=== PATIENT | female | born 1980 | race Caucasian/White ===

== ENCOUNTER 2017-06-12 15:43 | Observation (INO) | payer OTHER ==
--- NOTE | 2017-06-12 16:30 | C.PDOC ---
History Of Present Illness 36yo female, no known cardiac history, currently in her last month of is sent to the ER by Dr. López for evaluation of palpitations, which she has been having for the past 2 months. Patient reports her palpitations are intermittent and worse when she is lying supine on her left side. She denies any episodes of flu or cold symptoms during her , any chest pain, shortness of breath, fever, or cough. Patient was referred to Dr. López and was evaluated in his office where she had an abnormal EKG which showed non-specific ST depression. Dr. López did a preliminary echocardiogram which showed normal left ventricle, but her right atrium and ventricle were both dilated. Patient was then sent to [facility] [place] ER for further evaluation. Time Seen by Provider: 06/12/17 16:01 Chief Complaint (Nursing): Palpitations History Per: Patient History/Exam Limitations: no limitations Onset/Duration Of Symptoms: Intermittent Episodes, Persistent Current Symptoms Are (Timing): Still Present Associated Symptoms: denies: Chest Pain, Dyspnea, Dizziness, Blurred Vision, Focal Weakness, Headache Past Medical History Reviewed: Historical Data, Nursing Documentation, Vital Signs Vital Signs: Last Vital Signs Temp 98 F 06/12/17 15:53 Pulse 71 06/12/17 18:11 Resp 16 06/12/17 18:11 BP 108/81 06/12/17 18:11 Pulse Ox 100 06/12/17 21:10 - Medical History PMH: No Chronic Diseases Surgical History: No Surg Hx Family History: States: No Known Family Hx - Social History Hx Alcohol Use: No Hx Substance Use: No - Immunization History Hx Tetanus Toxoid Vaccination: No Hx Influenza Vaccination: No Hx Pneumococcal Vaccination: No Review Of Systems Except As Marked, All Systems Reviewed And Found Negative. Constitutional: Negative for: Fever, Chills Cardiovascular: Positive for: Palpitations. Negative for: Chest Pain Respiratory: Negative for: Cough, Shortness of Breath Physical Exam - Physical Exam Appears: Non-toxic, No Acute Distress Skin: Normal Color, Warm, Dry Head: Atraumatic, Normacephalic Eye(s): bilateral: PERRL, EOMI Neck: Normal ROM, Supple Chest: Symmetrical Cardiovascular: Rhythm Regular Respiratory: Normal Breath Sounds Gastrointestinal/Abdominal: Normal Exam, Soft, Other (gavid abdomen) Extremity: Normal ROM Neurological/Psych: Oriented x3, Normal Speech, Normal Cognition ED Course And Treatment - Laboratory Results Result Diagrams: 06/12/17 16:42 06/12/17 16:42 ECG: Interpreted By Me, Viewed By Me ECG Rhythm: Sinus Rhythm Interpretation Of ECG: T-wave inversion 3AVF and V1-V4. Rate From EC O2 Sat by Pulse Oximetry: 100 (RA) Pulse Ox Interpretation: Normal - Radiology CXR: Viewed By Me CXR Interpretation: Yes: No Acute Disease - Physician Consult Information Outcome Of Conversation: Case discussed with Dr López and Dr Huggins. Patient to remain on cardiac observation until echocardiogram can be done. Medical Decision Making Medical Decision Making: Plan: -- Per Dr. López, he is requesting DDimer levels, repeat echocardiogram and a possible pulmonary scan. Also requesting patient to be started on heparin drip. -- CMP -- CBC -- Troponin I Time: 1724 Labs reviewed, patient with elevated DDimer at 633. Case discussed with Dr. Huggins, agreeable with plan for CTA Chest; also requesting Heparin to be continued. CTA Chest [PE Protocol] ordered Heparin 5,000 units IVPB Heparin drip ordered Time: 1816 Patient informed on updated plan of care and is requesting her OBGYN Dr. Browne be made aware of plan. Case discussed with Dr. Browne who is requesting to hold heparin until CT Chest report is back. Time: 2056 CT Chest FINDINGS: Pulmonary arteries: No filling defects are seen in the pulmonary arteries or in its visualized tributaries. Aorta: The aorta and the great vessels are normal. Negative for dissection. Lungs: Indeterminate nodule of the left upper lung 8mm. Lungs overall clear. No focal lung consolidation, pulmonary infiltrates, no cavitary changes are seen. Pleural space: Unremarkable. No significant effusion. No pneumothorax. Heart: The cardiac chambers are mildly enlarged without pericardial thickening or effusion. No evidence of RV dysfunction. Bones/joints: No acute fracture. No dislocation. Soft tissues: Unremarkable. Lymph nodes: Unremarkable. No enlarged lymph nodes. IMPRESSION: No PE or dissection. No acute process is present in the chest. Indeterminate nodule within the left upper lung. Nodules >8 mm current recommendations include: In a low-risk patient follow-up CT at around 3, 9, and 24 months, dynamic contrast-enhanced CT, PET, and/or biopsy. In a high-risk patient same as for low-risk patient. Dr. Huggins informed of CT findings, who will also consult Dr. López. Time: [address] López requesting patient to be admitted overnight for observation. Patient informed of plan for admission and is agreeable. Disposition - Disposition Disposition: HOSPITALIZED Disposition Time: 21:13 Condition: STABLE - POA Present On Arrival: None - Clinical Impression Clinical Impression: Palpitations - Scribe Statement The provider has reviewed the documentation as recorded by the Scribe (Yoly Gentile) Provider Attestation: All medical record entries made by the Josyibe were at my direction and personally dictated by me. I have reviewed the chart and agree that the record accurately reflects my personal performance of the history, physical exam, medical decision making, and the department course for this patient. I have also personally directed, reviewed, and agree with the discharge instructions and disposition.
[2017-06-12 16:46] LABS: BASO % 0.4 % (0.0-2.0); EOS % 0.5 % (0.0-4.0); HEMOGLOBIN 11.4 g/dL (11.0-16.0); LYMPH # 2.3 K/uL (1.0-4.3); MEAN CELL VOLUME 75.1 fL (81.0-99.0); MEAN CORPUSCULAR HEMOGLOBIN 24.6 pg (27.0-31.0); MEAN CORPUSCULAR HGB CONC 32.7 g/dL (33.0-37.0); MONO # 0.9 K/uL (0.0-0.8); MONO % 9.4 % (0.0-10.0); NEUT # 5.9 K/uL (1.8-7.0); NEUT % 64.7 % (50.0-75.0); NRBC % 0.3 % (0.0-2.0); RBC 4.63 Mil/uL (3.80-5.20); RED CELL DISTRIBUTION WIDTH 16.4 % (11.5-14.5); WHITE BLOOD COUNT 9.1 K/uL (4.8-10.8)
[2017-06-12 17:04] LABS: ALB/GLOB RATIO 0.9 (1.0-2.1); ALBUMIN 3.6 g/dL (3.5-5.0); ALT/SGPT 15 U/L (9-52); AST/SGOT 16 U/L (14-36); BLOOD UREA NITROGEN 7 mg/dL (7-17); CALCIUM 8.8 mg/dl (8.6-10.4); GFR AFRICAN-AMERICAN > 60; GFR NON-AFRICAN AMERICAN > 60
[2017-06-12] MEDS ORDERED: Heparin25000 units/250ml 1/2NS 25,000 UNITS/250 ML BAG IV ONE (17:29)
[2017-06-12 18:04] LABS: PROTHROMBIN TIME 10.9 SECONDS (9.7-12.2)
--- NOTE | 2017-06-12 22:47 | CP.PCM.HP ---
History of Present Illness - History of Present Illness History of Present Illness: Chief complaint: Palpitations History of present illness: 36-year-old female with no past medical history currently 8 months came to the Dr. López's office, at that time patient was complaining of 2 weeks of recurrent palpitation, occasional chest pain, bilateral leg swelling. Patient was seen by funeral car driver. There was a concern about abnormal EKG, was sent to the emergency room. In the emergency room patient was evaluated, patient did not have any chest pain , she was resting comfortably, but comparing of recurrent palpitation, for at least 3 weeks, associated with a mild occasional chest discomfort, dyspnea. Patient was also having some leg swelling bilaterally, for 3 weeks. Blood pressure stable otherwise. 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 Controlled well with diet. Currently patient is comfortable not in any distress. No chest pain noted. Past medical history: None Allergies: Normal regular is None, Nonsmoker nonalcoholic Family history noncontributory No history of familial hypercoagulable state Review of system: Denies any headache, complaining of weakness, easy fatigability, tiredness, palpitation. Chest tightness occasionally. Bilateral leg swelling On examination: Patient is not in any distress, lying comfortably. Chest bilateral good air entry, regular heart sound noted. Abdomen Bilateral pedal edema noted Regular heart sound. Alert awake oriented Labs reviewed Nonspecific. Patient had a CT of the chest with the IV contrast for possible embolism, reported as negative. Patient had a EKG, showing evidence of T wave abnormalities, in the anterior leads and also in the inferior leads. Possible right ventricular strain and 10 Underlying right ventricular and possible heart failure cannot be ruled out Assessment/impression: 36-year-old female 8 months now. Bilateral pedal edema, EKG abnormality, because of the changes in the EKG, and outpatient echocardiogram showing evidence of abnormal right ventricle he was suggested to admit. Seen by cistern room operator. We'll admit the patient. Echocardiogram again in the morning. The patient has no evidence of pulmonary embolism there is no need of anticoagulation in the full dose range. Routine management as per the obstetrics DVT and GI prophylaxis. Cardiology evaluation. Will follow the patient after echocardiogram Present on Admission - Present on Admission Any Indicators Present on Admission: No History of DVT/PE: No History of Uncontrolled Diabetes: No Urinary Catheter: No Decubitus Ulcer Present: No Past Patient History - Past Social History Smoking Status: Never Smoked - ENDOCRINE/METABOLIC Other/Comment: Gestational DM - PSYCHIATRIC Hx Substance Use: No - SURGICAL HISTORY Hx Surgeries: No - ANESTHESIA Hx Anesthesia: No Meds Allergies/Adverse Reactions: Allergies Allergy/AdvReac Type Severity Reaction Status Date / Time No Known Allergies Allergy Verified 06/12/17 15:52 Results - Vital Signs Recent Vital Signs: Last Vital Signs Temp 98.1 F 06/12/17 22:27 Pulse 95 H 06/12/17 22:27 Resp 20 06/12/17 22:27 BP 108/51 L 06/12/17 22:27 Pulse Ox 100 06/12/17 22:27 - Labs Result Diagrams: 06/12/17 16:42 06/12/17 16:42 Labs: Laboratory Results - last 24 hr 06/12/17 06/12/17 06/12/17 16:42 16:42 16:42 WBC 9.1 RBC 4.63 Hgb 11.4 Hct 34.8 MCV 75.1 L MCH 24.6 L MCHC 32.7 L RDW 16.4 H Plt Count 236 MPV 9.0 Neut % (Auto) 64.7 Lymph % (Auto) 25.0 [place] % (Auto) 9.4 Eos % (Auto) 0.5 Baso % (Auto) 0.4 Neut # (Auto) 5.9 Lymph # (Auto) 2.3 [place] # (Auto) 0.9 H Eos # (Auto) 0.0 Baso # (Auto) 0.0 PT INR APTT D-Dimer, Quantitative 633 H Sodium 135 Potassium 3.9 Chloride 103 Carbon Dioxide 20 L Anion Gap 16 BUN 7 Creatinine 0.6 L Est GFR ( Amer) > 60 Est GFR (Non-Af Amer) > 60 Random Glucose 87 Calcium 8.8 Total Bilirubin 0.4 AST 16 ALT 15 Alkaline Phosphatase 223 H Troponin I < 0.0120 Total Protein 7.4 Albumin 3.6 Globulin 3.8 Albumin/Globulin Ratio 0.9 L 06/12/17 17:57 WBC RBC Hgb Hct MCV MCH MCHC RDW Plt Count MPV Neut % (Auto) Lymph % (Auto) [place] % (Auto) Eos % (Auto) Baso % (Auto) Neut # (Auto) Lymph # (Auto) [place] # (Auto) Eos # (Auto) Baso # (Auto) PT 10.9 INR 1.0 APTT 22 D-Dimer, Quantitative Sodium Potassium Chloride Carbon Dioxide Anion Gap BUN Creatinine Est GFR ( Amer) Est GFR (Non-Af Amer) Random Glucose Calcium Total Bilirubin AST ALT Alkaline Phosphatase Troponin I Total Protein Albumin Globulin Albumin/Globulin Ratio
--- NOTE | 2017-06-12 23:27 | US ---
EXAM: US Biophys Prof W Non-Stress EXAM DATE/TIME: 06/12/2017 9:21 PM CLINICAL HISTORY: 36 years old, female; Screening exam; Routine us screening of fetus; Third; TECHNIQUE: Real-time ultrasound of the biophys prof w non-stress with image documentation. COMPARISON: No relevant prior studies available. FINDINGS: There is a live intrauterine . Measurements of the biparietal diameter, head circumference, abdominal circumference, femur length correspond to gestational age of 37 weeks 5 days. A heart rate of 156 beats per minute was obtained. The fetus is cephalic in presentation. The stomach, kidney, and urinary bladder are identified. Limited images of the spine are submitted revealing no gross abnormality. Amniotic fluid volume of 17.3 cm was measured which is within normal limits (6.5 - 27). There are no CINE images submitted for evaluation of breathing and movement however per genetic technologist there is a BPP of 8 out of 8 (breathing, movement, tone, fluid volume). The placenta is anterior in location and appears normal. No placenta previa. The cervix measures 3 centimeters. IMPRESSION: Single live IUP.
[2017-06-13 07:37] LABS: HDL CHOLESTEROL 63 mg/dL (30-70)
[2017-06-13 07:49] LABS: B-TYPE NATRIURETIC PEPTIDE 64.8 pg/mL (0-450); CK-MB 0.33 ng/mL (0.0-3.38); LDL CHOLESTEROL 129 mg/dL (0-129)
[2017-06-13 07:59] VITALS: O2SAT 100
--- NOTE | 2017-06-13 09:09 | CT ---
CT chest pulmonary angiogram History: Hyperventilation. Palpitation. . Comparison: None available. Technique: Axial computed tomographic angiography images of the chest with intravenous contrast utilizing pulmonary embolism protocol. Sagittal and coronal reformatted images as well as sagittal and coronal MIPS reformatted images were obtained. This CT exam was performed using one or more of the following dose reduction techniques: Automated exposure control, adjustment of the mA and/or kV according to patient size, and/or use of iterative reconstruction technique. Findings: Somewhat limited exam given patient motion artifact. No gross central pulmonary embolism. More limited evaluation of the segmental and subsegmental branches particularly within the left lung. No evidence of gross aortic dissection. Indeterminate pulmonary nodule in the left upper lung measuring 8 millimeters on series 4, image 31. Additional 1-2 millimeter nodular density seen at the posterior left lung apex on series 4, image 13. Heart appears grossly preserved. No pleural effusion. Impression: 1. Somewhat limited exam given patient motion artifact. No gross central pulmonary embolism. More limited evaluation of the segmental and subsegmental branches particularly within the left lung. 2. Indeterminate pulmonary nodule measuring 8 millimeters in the left upper lung. Interval [address] chest follow-up may be helpful if clinically indicated. These findings were preliminarily reported at 8:57 p.m. on 06/12/[address] Rommel Johnson from [facility].
--- NOTE | 2017-06-13 12:44 | CP.PCM.DIS ---
Provider - Provider Date of Admission: 06/12/17 21:10 Attending physician: Bernardo Huggins MD Time Spent in preparation of Discharge (in minutes): 55 Hospital Course - Lab Results Lab Results: Most Recent Lab Values WBC 9.1 K/uL (4.8-10.8) 06/12/17 16:42 RBC 4.63 Mil/uL (3.80-5.20) 06/12/17 16:42 Hgb 11.4 g/dL (11.0-16.0) 06/12/17 16:42 Hct 34.8 % (34.0-47.0) 06/12/17 16:42 MCV 75.1 fL (81.0-99.0) L 06/12/17 16:42 MCH 24.6 pg (27.0-31.0) L 06/12/17 16:42 MCHC 32.7 g/dL (33.0-37.0) L 06/12/17 16:42 RDW 16.4 % (11.5-14.5) H 06/12/17 16:42 Plt Count 236 K/uL (130-400) 06/12/17 16:42 MPV 9.0 fL (7.2-11.7) 06/12/17 16:42 Neut % (Auto) 64.7 % (50.0-75.0) 06/12/17 16:42 Lymph % (Auto) 25.0 % (20.0-40.0) 06/12/17 16:42 [place] % (Auto) 9.4 % (0.0-10.0) 06/12/17 16:42 Eos % (Auto) 0.5 % (0.0-4.0) 06/12/17 16:42 Baso % (Auto) 0.4 % (0.0-2.0) 06/12/17 16:42 Neut # (Auto) 5.9 K/uL (1.8-7.0) 06/12/17 16:42 Lymph # (Auto) 2.3 K/uL (1.0-4.3) 06/12/17 16:42 [place] # (Auto) 0.9 K/uL (0.0-0.8) H 06/12/17 16:42 Eos # (Auto) 0.0 K/uL (0.0-0.7) 06/12/17 16:42 Baso # (Auto) 0.0 K/uL (0.0-0.2) 06/12/17 16:42 PT 10.9 SECONDS (9.7-12.2) 06/12/17 17:57 INR 1.0 06/12/17 17:57 APTT 22 SECONDS (21-34) 06/12/17 17:57 D-Dimer, Quantitative 633 ng/mlDDU (0-243) H 06/12/17 16:42 Sodium 135 mmol/L (132-148) 06/12/17 16:42 Potassium 3.9 mmol/L (3.6-5.2) 06/12/17 16:42 Chloride 103 mmol/L (98-107) 06/12/17 16:42 Carbon Dioxide 20 mmol/L (22-30) L 06/12/17 16:42 Anion Gap 16 (10-20) 06/12/17 16:42 BUN 7 mg/dL (7-17) 06/12/17 16:42 Creatinine 0.6 mg/dL (0.7-1.2) L 06/12/17 16:42 Est GFR ( Amer) > 60 06/12/17 16:42 Est GFR (Non-Af Amer) > 60 06/12/17 16:42 Random Glucose 87 mg/dL (65-105) 06/12/17 16:42 Calcium 8.8 mg/dl (8.6-10.4) 06/12/17 16:42 Total Bilirubin 0.4 mg/dL (0.2-1.3) 06/12/17 16:42 AST 16 U/L (14-36) 06/12/17 16:42 ALT 15 U/L (9-52) 06/12/17 16:42 Alkaline Phosphatase 223 U/L (38-126) H 06/12/17 16:42 Total Creatine Kinase 47 U/L (30-135) 06/13/17 07:10 CK-MB (Mass) 0.33 ng/mL (0.0-3.38) 06/13/17 07:10 Troponin I < 0.0120 ng/mL (0.00-0.120) 06/13/17 07:10 NT-Pro-B Natriuret Pep 64.8 pg/mL (0-450) 06/13/17 07:10 Total Protein 7.4 g/dL (6.3-8.3) 06/12/17 16:42 Albumin 3.6 g/dL (3.5-5.0) 06/12/17 16:42 Globulin 3.8 gm/dL (2.2-3.9) 06/12/17 16:42 Albumin/Globulin Ratio 0.9 (1.0-2.1) L 06/12/17 16:42 Triglycerides 254 mg/dL (0-149) H 06/13/17 07:10 Cholesterol 228 mg/dL (0-199) H 06/13/17 07:10 LDL Cholesterol Direct 129 mg/dL (0-129) 06/13/17 07:10 HDL Cholesterol 63 mg/dL (30-70) 06/13/17 07:10 TSH 3rd Generation 7.03 mIU/L (0.46-4.68) H 06/13/17 07:10 - Hospital Course Hospital Course: Upon Admission: Chief complaint: Palpitations History of present illness: 36-year-old female with no past medical history currently 8 months came to the Dr. López's office, at that time patient was complaining of 2 weeks of recurrent palpitation, occasional chest pain, bilateral leg swelling. Patient was seen by stable manager. There was a concern about abnormal EKG, was sent to the emergency room. In the emergency room patient was evaluated, patient did not have any chest pain , she was resting comfortably, but comparing of recurrent palpitation, for at least 3 weeks, associated with a mild occasional chest discomfort, dyspnea. Patient was also having some leg swelling bilaterally, for 3 weeks. Blood pressure stable otherwise. 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 Controlled well with diet. Currently patient is comfortable not in any distress. No chest pain noted. Past medical history: None Allergies: Normal regular is None, Nonsmoker nonalcoholic Family history noncontributory No history of familial hypercoagulable state Review of system: Denies any headache, complaining of weakness, easy fatigability, tiredness, palpitation. Chest tightness occasionally. Bilateral leg swelling Throughout Hospital Course: Patient was admitted due to chest pain and palpitations. Patient was evaluated to rule out PE/ DVT. CT chest negative for PE. Venous dopplers negative for DVT. ECHO was done and was read as normal as per Dr. López. Her thyroid studies reveal hypothyroidism which may be induced. She will need to have this repeat with her PMD or OB in a week. She is to continue with her routine OB visits. She is to follow up with Dr. López after she delivers for outpatient stress test. Discharge Exam - Head Exam Head Exam: ATRAUMATIC, NORMAL INSPECTION, NORMOCEPHALIC - Eye Exam Eye Exam: EOMI, Normal appearance, PERRL Pupil Exam: NORMAL ACCOMODATION - ENT Exam ENT Exam: Mucous Membranes Moist, Normal Exam - Respiratory Exam Respiratory Exam: Clear to PA & Lateral, NORMAL BREATHING PATTERN. absent: Decreased Breath Sounds - Cardiovascular Exam Cardiovascular Exam: REGULAR RHYTHM, RRR - GI/Abdominal Exam GI & Abdominal Exam: Normal Bowel Sounds, Soft. absent: Tenderness Additional comments: GRAVID abdomen - Rectal Exam Rectal Exam: Deferred - Extremities Exam Extremities exam: normal inspection, pedal edema, pedal pulses present - Neurological Exam Neurological exam: Alert, Oriented x3 - Psychiatric Exam Psychiatric exam: Normal Affect, Normal Mood - Skin Skin Exam: Dry, Intact, Normal Color, Warm Discharge Plan - Follow Up Plan Condition: STABLE Disposition: HOME/ ROUTINE Instructions: Palpitations Additional Instructions: You will need to have your thyroid studies repeated in 1-2 weeks. Please continue with your routine OB visits. Please make an appointment with Dr. López after you have delivered your baby for an outpatient stress test. Referrals: Harshal López MD [Staff Provider] -
[2017-06-13 15:36] VITALS: BP 98/64; PULSE 80; RESP 18; TEMP 97.8
--- NOTE | 2017-06-13 17:22 | VASCLAB ---
PROCEDURE: Lower Extremity Venous Duplex Exam. HISTORY: edema both lower ext. PRIORS: None. TECHNIQUE: Bilateral common femoral, femoral, popliteal and posterior tibial, peroneal and great saphenous veins were evaluated. Flow was assessed with color Doppler, compressibility, assessment of phasic flow and augmentation response. Report prepared by Beni Eason, HECTOR, RVT FINDINGS: RIGHT: 1. Common Femoral Vein: 1.1. Compressibility - Fully compressible: Thrombus - None : Flow - Phasic: Augmentation -Normal: Reflux - None. 2. Femoral Vein: 2.1. Compressibility - Fully compressible: Thrombus - None : Flow - Phasic: Augmentation -Normal: Reflux - None. 3. Popliteal Vein: 3.1. Compressibility - Fully compressible: Thrombus - None : Flow - Phasic: Augmentation -Normal: Reflux - None. 4. Posterior Tibial Vein: 4.1. Compressibility - Fully compressible: Thrombus - None: Flow - Phasic: Augmentation -Normal: Reflux - None. 5. Peroneal Vein: 5.1. Compressibility - Fully compressible: Thrombus - None: Flow - Phasic: Augmentation -Normal: Reflux - None. 6. Great Saphenous Vein: 6.1. Compressibility - Fully compressible: Thrombus - None: Flow - Phasic: Augmentation - Normal: Reflux - None. LEFT: 1. Common Femoral Vein: 1.1. Compressibility - Fully compressible: Thrombus - None: Flow - Phasic: Augmentation -Normal: Reflux - None. 2. Femoral Vein: 2.1. Compressibility - Fully compressible: Thrombus - None: Flow - Phasic: Augmentation -Normal: Reflux - None. 3. Popliteal Vein: 3.1. Compressibility - Fully compressible: Thrombus - None : Flow - Phasic: Augmentation -Normal: Reflux - None. 4. Posterior Tibial Vein: 4.1. Compressibility - Fully compressible: Thrombus - None: Flow - Phasic: Augmentation -Normal: Reflux - None. 5. Peroneal Vein: 5.1. Compressibility - Fully compressible: Thrombus - None: Flow - Phasic: Augmentation -Normal: Reflux - None. 6. Great Saphenous Vein: 6.1. Compressibility - Fully compressible: Thrombus - None: Flow - Phasic: Augmentation - Normal: Reflux - None. OTHER FINDINGS: Right: None significant. Left: None significant. IMPRESSION: Right: No evidence of deep or superficial vein thrombosis of the right lower extremity. Normal valve function noted of the right side. Left: No evidence of deep or superficial vein thrombosis of the left lower extremity. Normal valve function noted of the left side.
--- NOTE | 2017-06-14 07:23 | CARD ---
APPROVED REPORT EXAM: Two-dimensional and M-mode echocardiogram with Doppler and color Doppler. INDICATION Abnormal EKG/Arrhythmia Palpitations 2D DIMENSIONS IVSd0.8 (0.7-1.1cm)LVDd3.4 (3.9-5.9cm) PWd0.9 (0.7-1.1cm)LVDs2.2 (2.5-4.0cm) FS (%) 35.2 %LVEF (%)65.7 (>50%) M-Mode DIMENSIONS Left Atrium (MM)2.49 (2.5-4.0cm)Aortic Root2.93 (2.2-3.7cm) Aortic Cusp Exc.2.09 (1.5-2.0cm) Mitral Valve MV E Ctqccfih370.4cm/sMV A Nprtdtuv18.2cm/sE/A ratio1.5 TDI E/Lateral E'0.0E/Medial E'0.0 Tricuspid Valve TR Peak [id number]/sTR Peak Gr.[id number] LEFT VENTRICLE The left ventricle is normal size. There is normal left ventricular wall thickness. The left ventricular function is normal. The left ventricular ejection fraction is within the normal range. There is normal LV segmental wall motion. The left ventricular diastolic function is normal. RIGHT VENTRICLE The right ventricle is normal size. ATRIA The left atrium size is normal. The right atrium size is normal. AORTIC VALVE The aortic valve is normal in structure. MITRAL VALVE The mitral valve is normal in structure. TRICUSPID VALVE The tricuspid valve is normal in structure. <Conclusion> Normal LV systolic function. Normal chamber size. No significantvalvular abnormality seen.
--- NOTE | 2017-06-14 07:59 | CARD ---
APPROVED REPORT EKG Measurement Heart [id number] <Conclusion> Normal sinus rhythm Possible Left atrial enlargement Rightward axis Low voltage QRS Nonspecific T wave abnormality Abnormal ECG
--- NOTE | 2017-06-14 22:44 | CARD ---
APPROVED REPORT EKG Measurement Heart [id number] <Conclusion> Normal sinus rhythm Right axis deviation Right ventricular hypertrophy with repolarization abnormality Abnormal ECG
== END 2017-06-13 14:00 | disposition home or self-care (01) ==
LOC: C.ER 15:43 → C.9E 21:10 → C.6T 21:38
PROVIDERS: ADMIT Internal Medicine; ATTEND Internal Medicine
DX: O99.413 Diseases of the circulatory system complicating pregnancy, third trimester (principal); I49.9 Cardiac arrhythmia, unspecified; O24.410 Gestational diabetes mellitus in pregnancy, diet controlled; Z3A.32 32 weeks gestation of pregnancy
CPT/HCPCS: 36415; 71275; 76815; 76818; 80053; 80061; 82550; 82553; 83880; 84443; 84484; 85025; 85378; 85610; 85730; 93306; 93970; 99285; G0378

== ENCOUNTER 2017-06-26 06:15 | Inpatient (IN) | payer OTHER ==
[2017-06-26 07:02] VITALS: BMI 29.0
[2017-06-26] MEDS ORDERED: Lactated Ringer's 1,000 ML IV SCH ×2 (07:15)
--- NOTE | 2017-06-26 07:27 | OBHP ---
Datetime: 06/26/2017 07:09 IP Adm Impression: Term, intrauterine ; No Active Labor; Ruptured Membranes IP Admit Plan: Admit to unit; Initiate labor induction protocol IP Admit Plan Other: Cervical ripening Admit Comment, IP Provider: 36 y.o. LMP 09/20/17, JORDAN 06/27/17, EGA 39w 6d, c/o ROM 0530 hours, clear. Denies VB, Ctx. Passed mucous plug 06/25/17 2130 hours. (+) AFM. care: DR. Browne, no anita for A1 GDM. Fasting less than 90; post prandial mostly 120s, occ 130. Admitted approx 1 week ag o for c/o palpitations - negative/ normal cardiology work up P OB: Primip P [employer]PER[employer]OR: 13 x monthly x 2. PMH: A1 GDM PSH: denies NKDA Meds: PNV Soc Hx: denies illicit drug or EtOH use. x 5 years Fam Hx: Mother alive 62; Father alive 65 - both, no med issues. No fam h/o cancer P.E.: as above. WD in NAD. Awake, alert, oriented to time, person and place. Pleasant and cooperat desi Assessment: 36 y.o. P0, 39w 6d, PROM; not in labor. A1 GDM - per patient, well controlled. GBS cu rrently unknown. Category 1 tracing. D/W patient and , cervical ripening; possibly pitocin. Co unseled on pain options during labor. Patient expressed an understanding and agrees. No questions off ered. Plan: 1) Admit 2) NPO 3) IVFs 4) Continuous EFM 5) ADmission labs 6) F.S.: Q 4hr until acitve, then Q2hr 7) Cervidil 8) Anticipate vagnal delivery - as per Dr. Browne Pelvic Type - PN: Adequate Extremities - PN: Normal Abdomen - PN: Normal Back - PN: Normal Breast - PN: Not Done Lungs - PN: Normal Heart - PN: Normal Thyroid - PN: Not Done Neurologic - PN: Normal HEENT - PN: Normal General - PN: Normal Weight - Estimated: 3518 Presentation-Admit: Vertex FHR - Baseline A Provider: 130 Contraction Comments Provider: 5 Comments, ACOG Physical Exam: Abdomen: Gravid. Soft. Non tender. Fundal height 40 cm. Perineum: wet Spec: (+) pooling; (+) nitrazine All other systems reviewed and are negative Gestation - Est Wks by US: 39w 6d IP Hx Assessment: The History has been Reviewed and is Current EGA AdmitDate IP: 39.6 Vital Signs Provider: Reviewed IP Indication for Induction: Maternal Diabetes; Other IP Indication for Induction Oth: PROM IP Chief Complaint: Suspected ruptured membranes NICHD Variability Prov Fetus A: Moderate 6-25bpm NICHD Accel Fetus A IP Provider: 15X15 FHR Category Provider Fetus A: Category I NICHD Decel Fetus A IP Provider: None Dilatation, Provider: FT Effacement, Provider: 0 Station, Provider: -3 Genitourinary Exam: Normal DTRs - PN: Normal
[2017-06-26] MEDS ORDERED: Penicillin G 5 Million Unit Vial IVPB ONE (07:45)
[2017-06-26 07:48] LABS: BASO % 0.5 % (0.0-2.0); EOS # 0.1 K/uL (0.0-0.7); HEMOGLOBIN 10.5 g/dL (11.0-16.0); LYMPH # 2.1 K/uL (1.0-4.3); LYMPH % 30.4 % (20.0-40.0); MEAN CELL VOLUME 73.8 fL (81.0-99.0); MEAN CORPUSCULAR HEMOGLOBIN 24.2 pg (27.0-31.0); MEAN CORPUSCULAR HGB CONC 32.8 g/dL (33.0-37.0); MEAN PLATELET VOLUME 9.9 fL (7.2-11.7); MONO # 0.6 K/uL (0.0-0.8); NEUT # 4.1 K/uL (1.8-7.0); NEUT % 59.1 % (50.0-75.0); RBC 4.34 Mil/uL (3.80-5.20); RED CELL DISTRIBUTION WIDTH 16.7 % (11.5-14.5); WHITE BLOOD COUNT 6.9 K/uL (4.8-10.8)
--- NOTE | 2017-06-26 07:56 | OBPN ---
Datetime: 06/26/2017 07:50 IP Procedures Other: Cervidil placed IP Progress Impression Other: PROM; latent phase of labor. A1 GDM IP Procedures: Sterile Vag Exam IP Progress Plan: Continue present management; Cervical Ripening; Anticipate Vaginal Delivery Membranes, Provider: Ruptured Contraction Comments Provider: irregular FHR - Baseline A Provider: 135 IP Progress Note Comment: Cervidil placed in posterior vaginal vault Assessment: P0, 39w 6d, PROM, A1GDM. GBS unkownCategory 1 tracing. Stable. Plan: 1) penicillin for GBS unknown status 2) As above - Dr. Browne is aware NICHD Accel Fetus A IP Provider: 15X15 FHR Category Provider Fetus A: Category I NICHD Variability Prov Fetus A: Moderate 6-25bpm Dilatation, Provider: 1 Effacement, Provider: 40 Station, Provider: -3 NICHD Decel Fetus A IP Provider: None Datetime: 06/26/2017 07:09 Gestation - Est Wks by US: 39w 6d Weight - Estimated: 3518 Presentation-Admit: Vertex Vital Signs Provider: Reviewed
[2017-06-26 08:04] LABS: ALBUMIN 3.2 g/dL (3.5-5.0); ALT/SGPT 6 U/L (9-52); AST/SGOT 17 U/L (14-36); BLOOD UREA NITROGEN 7 mg/dL (7-17); CALCIUM 9.1 mg/dl (8.6-10.4); GFR AFRICAN-AMERICAN > 60; GFR NON-AFRICAN AMERICAN > 60
[2017-06-26 08:23] LABS: SQUAMOUS EPITHIAL 1 /hpf (0-5); URINE BACTERIA RARE (<OCC); URINE BILIRUBIN NEGATIVE (NEGATIVE); URINE BLOOD NEGATIVE (NEGATIVE); URINE CLARITY Clear (Clear); URINE COLOR Colorless (YELLOW); URINE GLUCOSE (UA) NORMAL (Normal); URINE LEUKOCYTE ESTERASE NEG Leu/uL (Negative); URINE PROTEIN NEGATIVE (NEGATIVE); URINE UROBILINOGEN NORMAL mg/dL (0.2-1.0)
[2017-06-26] MEDS ORDERED: Bupivacaine HCl/FentaNYL Cit 100 ML EPI ONE (10:46)
--- NOTE | 2017-06-26 16:38 | OBDS ---
DELIVERY PERSONNEL Delivery Doctor: dr solis Rn Admit: Kellie Jimenez RN Anesthesiologist: dr blackmon MATERNAL INFORMATION Delivery Anesthesia: Epidural Medications in Delivery: PITOCIN 20 Placenta Cultured: No Maternal Complications: None Provider Comments: of a female from telly position.body and shoulders delivered without dif fuclty.cord clamped and cur.cord blood collected.placenta spontaneously delivered.second degree perin eal laceration repaired with 2-0 chromic. Fundus firm patient stable LABOR SUMMARY EDC: 06/27/2017 00:00 No. Babies in Womb: 1 Attempted: No Labor Anesthesia: Epidural LABOR INFORMATION Cervical Ripening Agents: Cervidil (Annotations: removed) Oxytocin: N/A Group B Beta Strep: Positive Antibiotics # of Doses: 2 Antibiotics Time of Last Dose: 120 Steroids Given: None Reason Steroids Not Administered: Not Applicable MEMBRANES Membranes Rupture Method: Spontaneous Rupture of Membranes: 06/26/2017 05:30 Length of Rupture (hrs): 10.30 Amniotic Fluid Color: Clear Amniotic Fluid Amount: Small Amniotic Fluid Odor: Normal STAGES OF LABOR Stage 3 hrs: 0 Stage 3 min: 5 VAGINAL DELIVERY Laceration Extension: Second Degree Laceration Type: Perineal Laceration Repair: Yes Laceration Repair Note: second degree perineal laceration repaired with 2-0 chromic Initial Vag Sponge Count: 10 Final Vag Sponge Count: 10 Initial Vag Sharps Count: 1 Final Vag Sharps Count: 1 Sponge Count Correct: Yes; Vaginal Sweep Performed Sharps Count Correct: Yes BABY A INFORMATION Delivery Date/Time: 06/26/2017 15:48 Method of Delivery: Vaginal Born in Route : No : N/A Forceps: N/A Vacuum Extraction: N/A Shoulder Dystocia : No SHOULDER DYSTOCIA BABY A Delivery Date/Time: 06/26/2017 15:48 PRESENTATION/POSITION BABY A Presentation: Cephalic Cephalic Presentation: Vertex Breech Presentation: N/A PLACENTA INFORMATION BABY A Placenta Delivery Time : 06/26/2017 15:53 Placenta Method of Delivery: Spontaneous Placenta Status: Delivered SCORES BABY A Heart Rate 1 min: >100 bpm Resp Effort 1 min: Good Cry Reflex Irritability 1 min: Cough or Sneeze or Pulls Away Muscle Tone 1 min: Active Motion Color 1 min: Body Pope, Extremities Blue Resuscitation Effort 1 min: Tactile Stimulation SCORE 1 MIN: 9 Heart Rate 5 min: >100 bpm Resp Effort 5 min: Good Cry Reflex Irritability 5 min: Cough or Sneeze or Pulls Away Muscle Tone 5 min: Active Motion Color 5 min: Body Pope, Extremities Blue SCORE 5 MIN: 9 INFORMATION BABY A Gestational Age at Delivery: 39.6 Gestational Status: Term Infant Outcome : Liveborn Infant Condition : Stable Sex: Female IDENTIFICATION/MEDS BABY A ID Band Number: [id number] ID Band Location: Left Leg; Left Arm Sensor Applied: Yes Sensor Number: [id number] Sensor Location : Cord Clamp WEIGHT/LENGTH BABY A Infant Birthweight (gms): 2880 Infant Weight (lb): 6 Infant Weight (oz): 6 Infant Length Inches: 19.25 Length cms: 48.9 CORD INFORMATION BABY A No. Cord Vessels: 3 Nuchal Cord : N/A Cord Blood Taken: Yes Suction: Mouth; Nose ASSESSMENT BABY A Infant Complications: None Physical Findings at Delivery: Within Normal Limits Respirations: Appears Normal Spiral Runner/ALS Called : No Care By: DR ELIZALDE Transferred To: Remains with Mother
[2017-06-26] MEDS ORDERED: Oxycodone/Acetaminophen 5/325 mg Tab PO PRN (16:39)
[2017-06-26] MEDS: Benzocaine/Menthol 20%-0.5% Topical Spray (60 ml) TOP PRN (21:57)
[2017-06-27 07:23] LABS: BASO % 0.3 % (0.0-2.0); EOS % 0.1 % (0.0-4.0); HEMOGLOBIN 9.2 g/dL (11.0-16.0); LYMPH % 11.7 % (20.0-40.0); MEAN CELL VOLUME 74.2 fL (81.0-99.0); MEAN CORPUSCULAR HEMOGLOBIN 23.9 pg (27.0-31.0); MEAN CORPUSCULAR HGB CONC 32.2 g/dL (33.0-37.0); MEAN PLATELET VOLUME 9.4 fL (7.2-11.7); MONO # 1.5 K/uL (0.0-0.8); MONO % 8.8 % (0.0-10.0); NEUT # 13.3 K/uL (1.8-7.0); NEUT % 79.1 % (50.0-75.0); RBC 3.86 Mil/uL (3.80-5.20)
[2017-06-27 07:26] LABS: WHITE BLOOD COUNT 16.8 K/uL (4.8-10.8)
[2017-06-27] MEDS: Oxycodone/Acetaminophen 5/325 mg Tab PO PRN ×2 (09:50→21:29)
[2017-06-27] MEDS: Multiple Vitamins Tab PO SCH (10:25)
[2017-06-27 16:12] VITALS: RESP 20
--- NOTE | 2017-06-27 20:28 | OBPPN ---
Datetime: 06/27/2017 20:24 PP Pain Prov: Within normal limits PP Nausea Prov: Denies PP Flatus Prov: Yes PP BM Prov: No PP Heart Prov: Normal PP Lungs Prov: Normal PP Abdomen/Uterus Prov: Normal PP CVA Tenderness Prov: Normal PP Extremities Prov: Normal PP C/S Incision Prov: Not Applicable PP Progress Prov: Normal PP Impression Prov: Normal progression PP Plan Prov: Continue present management PP Progress Note Prov: S-patientd eneis any complaints.denies nausea, vomiting, headache, chest pain , shortness of breath O-VSS Afebrile Fundus firm and below umbilicus Extremities no calf tenderness A/P Patient s/p vaginal delivery ppd 1 douingw ell -discharge tomorrow -continue routine pp care Vital Signs Provider PP: Reviewed; Within Normal Limits
--- NOTE | 2017-06-27 20:31 | OBDCSUM ---
Datetime: 06/27/2017 20:26 Discharged to, Provider: Home Follow up at, Provider: dr solis Disch Instr Activity: May be up to bathroom; May be up for meals; May Shower Disch Instr Diet: Regular Discharge Instructions, Provider: Routine instructions given Discharge Diagnosis, Provider: Term Delivered Discharge Time: 06/28/2017 12:00 Follow up in weeks, Provider: 4 weeks Disch Activity Restrictions: No exercising; No lifting; No driving; No sexual activity; Nothing in v agina - [place], tampons, douche Discharge Comment, Provider: call the office or go to er if you have feevr, sever pain. heavy bleedi ng or any other problems Discharge Diagnosis Prov Other: s/p vaginal delivery
[2017-06-28] MEDS: Multiple Vitamins Tab PO SCH (10:43)
[2017-06-28] MEDS: Benzocaine/Menthol 20%-0.5% Topical Spray (60 ml) TOP PRN (18:16)
[2017-06-29 00:37] VITALS: BP 107/69; PULSE 80; TEMP 97.7; O2SAT 97
== END 2017-06-28 20:33 | disposition home or self-care (01) | DRG 775 ==
LOC: C.EROB 06:15 → C.4D 06:55 → C.4M 21:38
PROVIDERS: ADMIT Student in an Organized Health Care Education/Training Program; ATTEND Student in an Organized Health Care Education/Training Program
PROC: 10E0XZZ Delivery of Products of Conception, External Approach (ICD-10-PCS; principal; 2017-06-26)
PROC: 0KQM0ZZ Repair Perineum Muscle, Open Approach (ICD-10-PCS; 2017-06-26)
PROC: 3E0P7VZ Introduction of Hormone into Female Reproductive, Via Natural or Artificial Opening (ICD-10-PCS; 2017-06-26)
DX: O24.429 Gestational diabetes mellitus in childbirth, unspecified control (principal); O70.1 Second degree perineal laceration during delivery; Z3A.39 39 weeks gestation of pregnancy; Z37.0 Single live birth; O99.824 Streptococcus B carrier state complicating childbirth; O42.92 Full-term premature rupture of membranes, unspecified as to length of time between rupture and onset of labor